=== PATIENT | male | born 1955 ===

== ENCOUNTER → 2019-06-30 | Outpatient (CLI) | payer OTHER ==
[~2019-06-30] MED LIST: ACE3 PO; ALB0.5 INH; ASC500 PO; CLOP75TA PO; CYAN50TA3 PO; HYDR100T5 PO; KET10 PO; LISI30TA46 PO; METO50TA19 PO; MULT-1335 PO; PER PO; ROSU20TA24 PO; SODI1PAC NS; SUMA50TA34 PO; TUM500 PO
== END ==
LOC: LAB 14:48
PROVIDERS: ATTEND Urology
DX: R97.20 Elevated prostate specific antigen [PSA] (principal)
CPT/HCPCS: 36415; 84153; 84154